=== PATIENT | female | born 1985 | race Caucasian/White ===

== ENCOUNTER 2016-07-09 06:51 | Emergency (ER) | payer OTHER ==
[~2016-07-09] VITALS: Ht 165.1 cm; Wt 145.5 kg
[2016-07-09 06:56] VITALS: Ht 165.1 cm; Wt 145.5 kg
[2016-07-09] MEDS ORDERED: ONDANSETRON (ODT) 4 MG TAB ODT STA (07:33)
--- NOTE | 2016-07-09 07:36 | ERD ---
ER Documentation Chief Complaint Date/Time DATE: 07/09/16 TIME: 07:34 Chief Complaint ap since monday This a 30-year-old female who presents the emergency department today complaining of abdominal pain for the past 2 days. Patient states she has also had some nausea and one bout of vomiting. States that the pain feels like it is burning and that it moves up towards her throat.. States that she had gastritis a long time ago prior to her lap band surgery. States she has taken Mylanta and Pepto-Bismol. States the pain started after she ate [employer]. States she has had a gallbladder removal. States she also had a LAP-BAND surgery in 2008 and then had her lap band removed in 2013 because the LAP-BAND was "slipping". States that she has been seeing a weight loss doctor and has been taking pills that she is unsure of the names. Denies any diarrhea, dysuria , fevers or chills. ROS All systems reviewed and are negative except as per history of present illness. Medications Home Meds Active Scripts Acetaminophen* (Tylophen*) 500 Mg Capsule, 1 CAP PO Q6H Y for PAIN AND OR ELEVATED TEMP, #30 CAP Prov:STEVIE BERNAL PA-C 07/09/16 Famotidine* (Pepcid*) 20 Mg Tablet, 20 MG PO BID for 14 Days, TAB Prov:STEVIE BERNAL PA-C 07/09/16 Ondansetron Hcl* (Zofran*) 4 Mg Tablet, 4 MG PO Q6H for NAUSEA AND/OR VOMITING, #30 TAB Prov:STEVIE BERNAL PA-C 07/09/16 Allergies Allergies: Coded Allergies: No Known Allergy (Unverified , 07/09/16) PMhx/Soc Medical and Surgical Hx: pt denies Surgical Hx History of Surgery: Yes (lap band; band removed after a while) Hx Alcohol Use: No Hx Substance Use: No Hx Tobacco Use: No Physical Exam Vitals Vital Signs Date Time Temp Pulse Resp B/P Pulse Ox O2 Delivery O2 Flow Rate FiO2 07/09/16 06:56 98.2 83 18 137/83 99 Physical Exam Const: Obese, no acute distress Head: Atraumatic Eyes: Normal Conjunctiva ENT: Normal External Ears, Nose and Mouth. Neck: Full range of motion..~ No meningismus. Resp: Clear to auscultation bilaterally Cardio: Regular rate and rhythm, no murmurs Abd: Soft, epigastric tenderness non distended. Normal bowel sounds. No right upper quadrant tenderness. No lower abdominal pain or pelvic pain. Skin: No petechiae or rashes Back: No midline or flank tenderness Ext: No cyanosis, or edema Neur: Awake and alert Psych: Normal Mood and Affect Result Diagram: 07/09/16 0745 07/09/16 0745 Results 24 hrs Laboratory Tests Test 07/09/16 07:45 White Blood Count 7.410^3/ul Red Blood Count 4.8610^6/ul Hemoglobin 14.5g/dl Hematocrit 42.5% Mean Corpuscular Volume 87.4fl Mean Corpuscular Hemoglobin 29.8pg Mean Corpuscular Hemoglobin Concent 34.1g/dl Red Cell Distribution Width 12.0% Platelet Count 15016^3/UL Mean Platelet Volume 9.3fl Neutrophils % 74.0% Lymphocytes % 19.1% Monocytes % 5.5% Eosinophils % 0.8% Basophils % 0.3% Nucleated Red Blood Cells % 0.0/100WBC Neutrophils # 5.510^3/ul Lymphocytes # 1.410^3/ul Monocytes # 0.410^3/ul Eosinophils # 0.110^3/ul Basophils # 0.010^3/ul Nucleated Red Blood Cells # 0.010^3/ul Urine Color LT. YELLOW Urine Clarity CLEAR Urine pH 5.5 Urine Specific [place] >=1.030 Urine Ketones NEGATIVE Urine Nitrite NEGATIVE Urine Bilirubin NEGATIVE Urine Urobilinogen 0.2 E.U./dL Urine Leukocyte Esterase NEGATIVE Urine Microscopic RBC 2-5/HPF Urine Microscopic WBC 0-2/HPF Urine Squamous Epithelial Cells OCCASIONAL Urine Bacteria FEW Urine Hemoglobin 1+ Urine Glucose NEGATIVE% Urine Total Protein NEGATIVE Sodium Level 142mmol/L Potassium Level 4.1mmol/L Chloride Level 103mmol/L Carbon Dioxide Level 26mmol/L Anion Gap 17 Blood Urea Nitrogen 15mg/dl Creatinine 0.63mg/dl Glucose Level 113mg/dl Calcium Level 9.5mg/dl Total Bilirubin 0.3mg/dl Direct Bilirubin 0.00mg/dl Indirect Bilirubin 0.3mg/dl Aspartate Amino Transf (AST/SGOT) 28IU/L Alanine Aminotransferase (ALT/SGPT) 43IU/L Alkaline Phosphatase 118IU/L Total Protein 7.9g/dl Albumin 4.3g/dl Globulin 3.60g/dl Albumin/Globulin Ratio 1.19 Lipase 195U/L Current Medications Medications (Trade) Dose Ordered Sig/Nima Route PRN Reason Start Time Stop Time Status Last Admin Dose Admin Acetaminophen/ Hydrocodone Bitart ([place] (5/325)) 1 tab ONCE ONCE PO 07/09/16 08:00 07/09/16 08:01 DC 07/09/16 07:45 Famotidine (Pepcid) 20 mg ONCE ONCE PO 07/09/16 08:00 07/09/16 08:01 DC 07/09/16 07:45 Miscellaneous Medication (Gi Cocktail (2)) 40 ml ONCE ONCE PO 07/09/16 08:00 07/09/16 08:01 DC 07/09/16 07:45 Ondansetron HCl (Zofran Odt) 4 mg ONCE STAT ODT 07/09/16 07:33 07/09/16 07:34 DC 07/09/16 07:45 Procedures/MDM This a 30-year-old female who presents to the emergency department today complaining of abdominal pain one bout of nausea. On physical exam patient has epigastric tenderness. She is afebrile and otherwise well-appearing. She has no lower abdominal pain and no tenderness at McBurney's. Patient has a history of a cholecystectomy. I did obtain laboratory work as well as a UA and EKG given patients complaint of epigastric pain and the patients body mass Laboratory work no elevated white blood cell count. She is not anemic. Platelets are within normal limits. Electro lites are within normal limits. Liver functions normal limits. Lipase within normal limits. Bilirubin is within normal limits. UA is negative for infection Urine test is negative EKG read and interpreted by Dr. Verdugo. Rate [address] elevation. No QT prolongation. Normal sinus rhythm. Low suspicion for acute IA, PE, pericarditis. Patient was given [place], Zofran, Pepcid and a GI cocktail here in the emergency department and pain improved. Patient symptoms at this time was consistent with epigastric pain and gastritis. Low suspicion for retained stone given patient's negative laboratory workup. Low suspicion for pancreatitis. Low suspicion for acute surgical abdomen. Patient be given a prescription for Tylenol, Zofran and Pepcid for home. At this time the patient is stable for discharge and outpatient management. Patient should follow up with their PCP in the next 1-2 days. They may return to the emergency department sooner for any persistent or worsening of symptoms. Patient understood and agreed with the plan. Departure Diagnosis: Primary Impression: Abdominal pain Abdominal location: epigastric Qualified Code: R10.13 - Epigastric pain Condition: Fair STEVIE BERNAL PA-C July 09, 2016 07:36
[2016-07-09 07:53] LABS: ADD SCAN DIFF NO
[2016-07-09] MEDS ORDERED: LIDOCAINE/MYLANTA 40 ML BTL PO ONE (08:00)
[2016-07-09] MEDS ORDERED: FAMOTIDINE 20 MG TAB PO ONE (08:00)
[2016-07-09] MEDS ORDERED: HYDROCODONE/APAP (5/325) TAB PO ONE (08:00)
[2016-07-09 08:07] LABS: ADD UMIC YES; URINE BILIRUBIN (Dip) NEGATIVE (NEGATIVE); URINE BLOOD (Dip) 1+ (NEGATIVE); URINE COLOR LT. YELLOW (YELLOW); URINE GLUCOSE (Dip) NEGATIVE (NEGATIVE); URINE KETONES (Dip) NEGATIVE (NEGATIVE); URINE LEUKOCYTE ESTERASE (Dip) NEGATIVE (NEGATIVE); URINE NITRITE (Dip) NEGATIVE (NEGATIVE); URINE TOTAL PROTEIN (Dip) NEGATIVE (NEGATIVE); URINE UROBILINOGEN (Dip) 0.2 E.U./dL (0.1-1.0)
[2016-07-09 08:26] LABS: BACTERIA,URINE FEW; SQUAMOUS EPITHELIAL CELL,UR OCCASIONAL
[2016-07-09 08:27] LABS: ALBUMIN 4.3 g/dl (3.3-4.9)
[2016-07-09 08:28] LABS: POTASSIUM 4.1 mmol/L (3.5-5.1)
[2016-07-09 08:30] LABS: ALBUMIN/GLOBULIN RATIO 1.19; BILIRUBIN,INDIRECT 0.3 mg/dl (0-1.1); BILIRUBIN,TOTAL 0.3 mg/dl (0.2-1.3); CREATININE 0.63 mg/dl (0.44-1.00); TOTAL PROTEIN 7.9 g/dl (6.1-8.1)
[2016-07-09 08:31] LABS: CALCIUM 9.5 mg/dl (8.4-10.2)
[2016-07-09 08:41] LABS: BASOPHILS % 0.3 % (0.0-2.0); EOSINOPHILS # 0.1 10^3/ul (0.0-0.5); EOSINOPHILS % 0.8 % (0.0-7.0); HEMATOCRIT 42.5 % (37.0-47.0); HEMOGLOBIN 14.5 g/dl (12.0-16.0); LYMPHOCYTES # 1.4 10^3/ul (0.8-2.9); LYMPHOCYTES % 19.1 % (15.0-51.0); MEAN CORPUSCULAR HEMOGLOBIN 29.8 pg (29.0-33.0); MEAN CORPUSCULAR HGB CONC 34.1 g/dl (32.0-37.0); MEAN CORPUSCULAR VOLUME 87.4 fl (82.0-101.0); MEAN PLATELET VOLUME 9.3 fl (7.4-10.4); MONOCYTE # 0.4 10^3/ul (0.3-0.9); MONOCYTES % 5.5 % (0.0-11.0); NEUTROPHIL # 5.5 10^3/ul (1.6-7.5); PLATELET COUNT 292 10^3/UL (140-415); RED BLOOD COUNT 4.86 10^6/ul (4.20-5.40); WHITE BLOOD COUNT 7.4 10^3/ul (4.8-10.8)
[2016-07-09] MEDS ORDERED: FAMO-18 PO (09:25)
[2016-07-09] MEDS ORDERED: ONDA4TAB8 PO (09:25)
[2016-07-09] MEDS ORDERED: ACET500C5 PO (09:26)
== END 2016-07-09 09:46 | disposition home or self-care (01) ==
LOC: FTE 06:51
DX: R10.13 Epigastric pain (principal); R11.2 Nausea with vomiting, unspecified
CPT/HCPCS: 36415; 80053; 81001; 81003; 83690; 85025; 93005